=== PATIENT | female | born 1970 | race Caucasian/White ===

== ENCOUNTER 2019-08-13 11:23 | Emergency (ER) | payer OTHER ==
[~2019-08-13] VITALS: Ht 165.1 cm; Wt 146.5 kg
[~2019-08-13 11:23] MED LIST: ACTOPLUS MET X1 EACH PO; AMPICILLIN TRI500 MG PO; BUPROPION XL150 MG PO; GABAPENTIN300 MG PO; LEVEMIR100 UNIT/1 SQ; LISINOPRIL2.5 MG PO; METFORMIN HCL1000 MG PO; NAPROSYN500 MG PO; NEURONTIN300 MG PO; NIACIN250 MG PO; TYLENOL WITH C1 EACH PO; ULTRAM 50MG50 MG PO; ULTRAM50 MG PO; ZETIA10 MG PO
--- OUTSIDE RECORDS SUMMARY | 2019-08-13 11:28 | XMS REPORT ---
Author Author [facility] Address Unknown Phone Unavailable Care Team Providers Care Mortgage Consultant Name Role Phone Bria HUNTER Unavailable Unavailable Problems This patient has no known problems. Allergies, Adverse Reactions, Alerts This patient has no known allergies or adverse reactions. Medications This patient has no known medications. Results Test Description Test Time Test Comments Text Results Atomic Results Result Comments MAMMOGRAPHY DIGITAL SCR BILAT [place] [address] Patient Name: ANDREWS LIU MR #: [id number] : 1970 Age/Sex: 46/F Req #: [id number] Adm Physician: Ordered by: GIOVANA HUNTER MD Report #: [id number] Location: MAMMO Room/Bed: Procedure: [id number] MG/MAMMOGRAPHY DIGITAL SCR BILAT Exam Date: 05/11/17 Exam Time: 1530 REPORT STATUS: Signed #[id number] - [id number] #BILATERAL DIGITAL SCREENING MAMMOGRAM WITH CAD: 05/11/2017 CLINICAL: Routine screening. Comparison is made to exams dated: 03/14/2016 mammogram, 12/20/2013 mammogram and 11/06/2012 mammogram - [facility]. Current study contains 6 films. The tissue of both breasts is predominantly fatty. Current study was also evaluated with a Computer Aided Detection (CAD) system. There are benign calcifications in both breasts. There also are benign lymph nodes in both breasts. No significant masses, calcifications, or other findings are seen in either breast. There has been no significant interval change. IMPRESSION: BENIGN There is no mammographic evidence of malignancy. A 1 year screening mammogram is recommended. The patient will be notified by letter of the results. Lela hayes/adalberto:05/29/2017 07:00:11 Marketing Operations Intern: Zamzam OSORIO(R)(Bria), [facility] letter sent: Compared to Prior B9 Mammogram BI-RADS: 2 Benign Dictated By: LELA MURO DO 9 Transcribed By: ADALBERTO on 05/29/17699 COPY TO: GIOVANA HUNTER MD
[2019-08-13] MEDS ORDERED: SODIUM CHLORIDE 0.9% 1000ML 1,000 ML IV STA (11:30)
[2019-08-13] MEDS ORDERED: PROMETHAZINE 25MG/ NS 50ML (IV) IV ONE (11:30)
[2019-08-13] MEDS ORDERED: FAMOTIDINE 20 MG/2 ML VIAL IV ONE ×2 (11:30→13:13)
[2019-08-13] MEDS ORDERED: IOPAMIDOL 370 MG/ML 50ML INFUS..BTL INJ ONE (12:00)
[2019-08-13] MEDS ORDERED: KETOROLAC TROMETHAMINE 30 MG/ML VIAL IV ONE (12:00)
[2019-08-13] MEDS ORDERED: KETOROLAC TROMETHAMINE 30 MG/ML VIAL ONE (13:13)
[2019-08-13] MEDS ORDERED: SODIUM CHLORIDE 0.9% 1000ML 1,000 ML ONE (13:13)
[2019-08-13] MEDS ORDERED: PROMETHAZINE HCL (IM) 25 MG/ML VIAL ONE (13:14)
[2019-08-13] MEDS ORDERED: MORPHINE SULFATE INJ 4 MG/ML INJ 1ML IV STA (14:59)
[2019-08-13] MEDS ORDERED: DIPHENHYDRAMINE HCL INJ 50 MG/ML VIAL IV ONE (15:00)
--- NOTE | 2019-08-13 15:02 | Diagnostic Imaging Report ---
EXAMINATION: CT of the abdomen and pelvis with contrast. TECHNIQUE: Helical CT images of the abdomen and pelvis were performed from the lung bases to the lesser trochanters after the intravenous administration of 100 cc of Isovue 300 and the oral administration of none. Coronal and sagittal reformatted images were obtained.Dose modulation, iterative reconstruction, and/or weight based adjustment of the mA/kV was utilized to reduce the radiation dose to as low as reasonably achievable. COMPARISON: None. CLINICAL HISTORY:Stomach pain DISCUSSION: ABDOMEN/PELVIS: LOWER THORAX:Unremarkable. HEPATOBILIARY: No focal hepatic lesions. No intra-or extrahepatic biliary ductal dilation. The gallbladder is normal. SPLEEN: No splenomegaly. PANCREAS: No focal masses or ductal dilatation. ADRENALS: No adrenal nodules. KIDNEYS/URETERS: No hydronephrosis, stones, or solid mass lesions. PELVIC ORGANS/BLADDER: The bladder is normal. PERITONEUM/RETROPERITONEUM: No free air or fluid. LYMPH NODES: No intra-abdominal, retroperitoneal, pelvic or inguinal lymphadenopathy. VESSELS: Unremarkable. GI TRACT: No distention or wall thickening. Scattered diverticulosis without inflammatory change. BONES AND SOFT TISSUE: No bony destructive lesions. Midline fat-containing infraumbilical hernia. IMPRESSION: No acute CT finding Signed by: Dr. Ahsan Catherine M.D. on 08/13/2019 2:59 PM
[2019-08-13 15:09] VITALS: BP 168/89
[2019-08-13] MEDS ORDERED: MORPHINE SULFATE INJ 4 MG/ML INJ 1ML ONE (15:10)
[2019-08-13] MEDS ORDERED: DIPHENHYDRAMINE HCL INJ 50 MG/ML VIAL ONE (15:10)
== END 2019-08-13 15:14 | disposition home or self-care (01) ==
LOC: FSED 11:23
DX: A08.39 Other viral enteritis (principal); E86.0 Dehydration; R10.32 Left lower quadrant pain
CPT/HCPCS: 74177; 80048; 80076; 81003; 81025; 85025; 99284; J1200; J1885; J2270; J2550; J7030; Q9967

== ENCOUNTER 2019-09-23 18:59 | Emergency (ER) | payer OTHER ==
[~2019-09-23] VITALS: Ht 165.1 cm; Wt 145.1 kg
--- NOTE | 2019-09-23 19:55 | Diagnostic Imaging Report ---
EXAMINATION: Head CT without contrast. HISTORY:Left arm numbness and bilateral leg numbness. COMPARISON:Report of CT brain from 03/17/2013, prior images are not available for comparison at the time of interpretation. TECHNIQUE: Multidetector axial images were obtained from the foramen magnum to the vertex without contrast. The images were reconstructed using brain and bone algorithms. Thin section brain images were reformatted into coronal and sagittal planes. Dose modulation, iterative reconstruction, and/or weight based adjustment of the mA/kV was utilized to reduce the radiation dose to as low as reasonably achievable. Intravenous contrast: None IMAGE QUALITY: Acceptable. FINDINGS: Skull/scalp: No lytic or blastic. lesions. No surgical changes. Parenchyma: As mentioned in the prior study there is persistent confluent hypodensity in right periatrial periventricular deep white matter and right parietal best radiata which is nonspecific and may represent chronic small vessel ischemia, vasculitis or demyelinating process in appropriate clinical setting. However evaluation is suboptimal as prior images are not available for comparison. Nonspecific few, scattered supratentorial white matter hypodensity. No acute hemorrhage, mass or acute major vascular territorial infarct. Arteries: No density suggestive of thrombosis. Dural sinuses: No abnormal density suggestive of thrombosis. Ventricles: No hydrocephalus or displacement. Extra-axial spaces: No abnormal density. Brain volume: Normal for age. Craniocervical junction: No mass, Chiari malformation, or basilar invagination. Sella: No mass. Paranasal/mastoid sinuses: Imaged portions unremarkable. IMPRESSION: 1. No acute intracranial abnormality, particularly no acute hemorrhage, mass or acute major vascular territorial infarct. 2. Persistent nonspecific area of confluent hypodensity in right posterior periventricular white matter which may be related to small vessel ischemia, vasculitis or demyelinating process in appropriate clinical setting. This can be further evaluated with MRI of the brain with and without contrast if previous workup has not been done. Signed by: Dr. Rea Castorena M.D. on 09/23/2019 7:53 PM
[2019-09-23] MEDS ORDERED: PREDNISONE10 MG PO (20:02)
[2019-09-23 20:15] VITALS: BP 117/53
== END 2019-09-23 20:05 | disposition home or self-care (01) ==
LOC: FSED 18:59
DX: G44.219 Episodic tension-type headache, not intractable (principal)
CPT/HCPCS: 70450; 99283

== ENCOUNTER → 2020-01-12 | Day surgery (SDC) | payer OTHER ==
[~2020-01-12] MED LIST changes: +ATORVASTATIN CA10 MG PO; +CYMBALTA30 MG PO; +FENTANYL CITRATE/PF 100MCG/2 ML INJ ONE; +LIDOCAINE HCL 2% LOCAL INJ 5 ML SDV VIAL INJ ONE; +MIDAZOLAM HCL 2 MG/2 ML VIAL ONE; +NAPROXEN250 MG PO; +OZEMPIC1 MG/0.75 SC; +PREDNISONE10 MG PO; +PROPOFOL IV EMULSION 10 MG/ML 20 ML VIAL ONE; +TIZANIDINE HCL4 MG PO
[2020-01-12 14:30] VITALS: BP 112/62
== END | disposition home or self-care (01) ==
LOC: OR 10:25
PROVIDERS: ATTEND Internal Medicine Gastroenterology
DX: K29.30 Chronic superficial gastritis without bleeding (principal); K21.9 Gastro-esophageal reflux disease without esophagitis; K44.9 Diaphragmatic hernia without obstruction or gangrene; K64.1 Second degree hemorrhoids; Z71.3 Dietary counseling and surveillance; I10 Essential (primary) hypertension; E11.9 Type 2 diabetes mellitus without complications; K76.0 Fatty (change of) liver, not elsewhere classified; D69.6 Thrombocytopenia, unspecified; D64.9 Anemia, unspecified; E66.01 Morbid (severe) obesity due to excess calories; R94.5 Abnormal results of liver function studies; G89.29 Other chronic pain; N20.0 Calculus of kidney; F41.9 Anxiety disorder, unspecified; F31.9 Bipolar disorder, unspecified; Z88.0 Allergy status to penicillin; Z01.810 Encounter for preprocedural cardiovascular examination; Z01.812 Encounter for preprocedural laboratory examination; Z11.59 Encounter for screening for other viral diseases; Z68.43 Body mass index [BMI] 50.0-59.9, adult; Z87.891 Personal history of nicotine dependence; Z80.0 Family history of malignant neoplasm of digestive organs
CPT/HCPCS: 36415; 43239; 45378; 81025; 82948; 87635; 93005; J2001; J2250; J2704; J3010

== ENCOUNTER → 2020-07-23 | Outpatient (CLI) | payer OTHER ==
[~2020-07-23] MED LIST changes: -FENTANYL CITRATE/PF 100MCG/2 ML INJ ONE; -LIDOCAINE HCL 2% LOCAL INJ 5 ML SDV VIAL INJ ONE; -MIDAZOLAM HCL 2 MG/2 ML VIAL ONE; -PROPOFOL IV EMULSION 10 MG/ML 20 ML VIAL ONE
== END ==
LOC: MAMMO 08:35
PROVIDERS: ATTEND Internal Medicine
DX: Z12.31 Encounter for screening mammogram for malignant neoplasm of breast (principal)
CPT/HCPCS: 77067

== ENCOUNTER → 2022-01-10 | Outpatient (CLI) | payer BC | LOC: MAMMO 15:45 | PROVIDERS: ATTEND Internal Medicine | DX: Z12.31 Encounter for screening mammogram for malignant neoplasm of breast (principal) | CPT/HCPCS: 77067 ==

== ENCOUNTER 2022-04-10 07:47 | Outpatient (RCR) | payer BC | END 2022-04-12 | LOC: OT 07:47 → PT 07:47 | PROVIDERS: ATTEND Internal Medicine | DX: I69.351 Hemiplegia and hemiparesis following cerebral infarction affecting right dominant side (principal); R47.1 Dysarthria and anarthria; R47.89 Other speech disturbances | CPT/HCPCS: 92523 ==

== ENCOUNTER 2022-04-21 10:49 | Outpatient (RCR) | payer BC | END 2022-05-12 | LOC: PT 10:49 | PROVIDERS: ATTEND Internal Medicine | DX: I69.351 Hemiplegia and hemiparesis following cerebral infarction affecting right dominant side (principal); R47.89 Other speech disturbances ==